=== PATIENT | female | born 1970 | race Hispanic/Latino ===

== ENCOUNTER 2017-09-16 16:35 | Emergency (ER) | payer OTHER ==
[~2017-09-16] VITALS: Ht 167.6 cm; Wt 82.1 kg
[2017-09-16 17:16] VITALS: BP 124/91
== END 2017-09-16 17:15 | disposition home or self-care (01) ==
LOC: FSED 16:35
DX: S90.32XA Contusion of left foot, initial encounter (principal); W20.8XXA Other cause of strike by thrown, projected or falling object, initial encounter; Y92.008 Other place in unspecified non-institutional (private) residence as the place of occurrence of the external cause
CPT/HCPCS: 99283

== ENCOUNTER 2017-10-03 01:07 | Emergency (ER) | payer OTHER ==
[~2017-10-03] VITALS: Ht 170.2 cm; Wt 79.8 kg
[2017-10-03] MEDS ORDERED: ONDANSETRON HCL INJ 2 MG/ML VIAL IV STA (01:33)
[2017-10-03] MEDS ORDERED: SODIUM CHLORIDE 0.9% 1000ML 1,000 ML IV SCH (01:45)
[2017-10-03] MEDS ORDERED: ZOFRAN ODT4 MG PO (02:36)
== END 2017-10-03 02:44 | disposition home or self-care (01) ==
LOC: FSED 01:07
DX: R42 Dizziness and giddiness (principal); R55 Syncope and collapse; K52.9 Noninfective gastroenteritis and colitis, unspecified; E86.1 Hypovolemia; R94.31 Abnormal electrocardiogram [ECG] [EKG]
CPT/HCPCS: 80053; 80307; 81003; 82553; 84484; 85025; 93005; 99283; J2405

== ENCOUNTER 2017-10-22 11:52 | Emergency (ER) | payer OTHER ==
[~2017-10-22] VITALS: Ht 170.2 cm; Wt 79.8 kg
[~2017-10-22 11:52] MED LIST: ZOFRAN ODT4 MG PO
[2017-10-22] MEDS ORDERED: LORAZEPAM 0.5 MG TAB PO ONE (13:30)
== END 2017-10-22 14:20 | disposition home or self-care (01) ==
LOC: FSED 11:52
DX: R00.2 Palpitations (principal); F41.1 Generalized anxiety disorder
CPT/HCPCS: 93005; 99283

== ENCOUNTER 2018-08-04 15:02 | Emergency (ER) | payer BC, OTHER ==
[~2018-08-04] VITALS: Ht 167.6 cm; Wt 84.8 kg
[2018-08-04] MEDS ORDERED: KETOROLAC TROMETHAMINE 60 MG/2 ML VIAL IM ONE (16:00)
[2018-08-04] MEDS ORDERED: PREDNISONE 20 MG TAB PO ONE ×2 (16:00→17:00)
--- NOTE | 2018-08-04 16:32 | Diagnostic Imaging Report ---
Exam: Lumbar spine complete History: Low back pain Comparison: None. Findings: There are 5 nonrib-bearing lumbar-type vertebral bodies. No acute displaced fracture or subluxation. Intervertebral disc spaces are well-maintained. Facet joints are intact. No pars interarticularis defects are identified on the oblique radiographs. Sacroiliac joints are well-maintained. Sacral foramina are intact superiorly. Impression: No acute osseous abnormality. Signed by: Dr. Jared Stephens M.D. on 08/04/2018 4:29 PM
[2018-08-04] MEDS ORDERED: KETOROLAC TROMETHAMINE 60 MG/2 ML VIAL ONE (16:47)
[2018-08-04] MEDS ORDERED: PREDNISONE 20 MG TAB ONE ×2 (16:47→16:49)
[2018-08-04] MEDS ORDERED: PREDNISONE20 MG PO (16:54)
[2018-08-04] MEDS ORDERED: ETODOLAC500 MG PO (16:56)
[2018-08-04] MEDS ORDERED: ULTRAM50 MG PO (17:17)
[2018-08-04 17:18] VITALS: BP 136/93
== END 2018-08-04 17:21 | disposition home or self-care (01) ==
LOC: FSED 15:02
DX: M54.5 Low back pain (principal); M54.16 Radiculopathy, lumbar region; F41.9 Anxiety disorder, unspecified
CPT/HCPCS: 72110; 99283; J1885; J7512

== ENCOUNTER 2019-09-23 14:11 | Emergency (ER) | payer BC ==
[~2019-09-23] VITALS: Ht 167.6 cm; Wt 72.6 kg
[~2019-09-23 14:11] MED LIST changes: +ETODOLAC500 MG PO; +PREDNISONE20 MG PO; +ULTRAM50 MG PO
[2019-09-23] MEDS ORDERED: ASPIRIN 81 MG CHEW TAB PO ONE (14:41)
--- NOTE | 2019-09-23 14:47 | Emergency Department Note ---
History of Present Illnes History of Present Illness Chief Complaint: chest pressure for the last 2 months after being diag with covid 08/25 tested neg appox 10 days later History of Present Illness This is a 49 year old female . Arrival Mode: Car Agile Java Developer Required: No Onset (how long ago): month(s) (1) Radiation: Reports non-radiation Severity: moderate Onset quality: gradual Duration (how long): month(s) (1) Progression: worsening Chronicity: recurrent Context: Reports recent illness (covid ads above) Exacerbating factors: none Treatments prior to arrival: none Past Medical/Family History Physician Review I have reviewed the patient's past medical and family history. Any updates have been documented here. Past Medical History Recent Fever: No Clinical Suspicion of Infectio: No New/Unexplained Change in Ment: No Past Medical History: Migraines, Anxiety Past Surgical History: Hysterectomy, Tubal Ligation Other Surgery: TUBAL REVERSAL FIBROIDS REMOVAL BREAST BIOPSY-BILATERAL Social History Alcohol Use: None TB Exposure/Symptoms: No Physically hurt or threatened: No Other Last Tetanus: UTD Any Pre-Existing Lines (PICC,: No Review of Systems Review of Systems Constitutional: Reports as per HPI EENTM: Reports no symptoms Respiratory: Reports cough (non productive) Gastrointestinal: Reports no symptoms Genitourinary: Reports no symptoms Musculoskeletal: Reports no symptoms Integumentary: Reports no symptoms Neurological: Reports no symptoms (mild frequent as per pt), Reports headache, Reports other (heaviness to left ue and tingling hands) Psychological: Reports anxiety Endocrine: Reports no symptoms Hematological/Lymphatic: Reports no symptoms Review of other systems: All other systems negative Physical Exam Related Data Allergies: Coded Allergies: No Known Allergies (Unverified , 06/12/16) Vital signs reviewed: Yes Physical Exam CONSTITUTIONAL Constitutional: Present well-developed, Present well-nourished HENT HENT: Present normocephalic, Present atraumatic, Present oropharynx clear/moist, Present oropharynx normal, Present nose normal HENT L/R: Present left TM normal, Present right TM normal, Present left canal normal, Present right canal normal, Present left ext ear normal, Present right ext ear normal EYES Eyes: Reports PERRL, Reports conjunctivae normal, Reports EOM normal, Reports lids normal NECK Neck: Present ROM normal, Present supple PULMONARY Pulmonary: Present effort normal, Present breath sounds normal CARDIOVASCULAR Cardiovascular: Present regular rhythm, Present heart sounds normal, Present capillary refill normal, Present normal rate GASTROINTESTINAL Abdominal: Present soft, Present nontender GENITOURINARY Genitourinary: Present exam deferred SKIN Skin: Present warm, Present dry MUSCULOSKELETAL Musculoskeletal: Present ROM normal NEUROLOGICAL Neurological: Present alert, Present oriented x 3, Present DTRs normal, Present no gross motor or sensory deficits (motor 5/5 all 4 extremities no pronator drift no cerebellar signs) PSYCHOLOGICAL Psychological: Present mood/affect normal, Present behavior normal, Present thought content normal Results Laboratory Lab results reviewed: Yes Laboratory comments cbc WNl Chem unremarkable except k 3.4 and ast 46 only mildly abnormal cardiac markers wnl. D-Dimer less than 100 WNL Imaging Imaging results reviewed: Yes Impressions Ct Brain and Chest Xray NAD Diagnostics Tests Diagnostic test(s) reviewed: Yes Diagnostic comments EKG NSR rate 73 axis intervals within normal limits. Poor rwave progression however r waves present in V1 V2. Q wave V3 only Assessment & Plan Medical Decision Making MDM all jackson negative . Post infection cough with chest pain no evidence of cardiac etiology at this point. Constant for 1 month. Told patient that follow up very important and she could return to the ER for any further concerns Assessment & Plan Final Impression: (1) Atypical chest pain (2) Cough, persistent Depart Disposition: HOME, SELF-snf Meds Active Scripts Tramadol Hcl (ULTRAM) 50 Mg Tablet, 50 MG PO Q6H PRN for back pain, #20 TAB 0 Refills Prov:ASHLY HELM MD 08/04/18 Etodolac (ETODOLAC) 500 Mg Tablet, 1 TAB PO BID for pain and inflammation for 10 Days, #20 TAB 0 Refills Prov:ASHLY HELM MD 08/04/18 Prednisone (PREDNISONE) 20 Mg Tab, 50 MG PO DAILY for back pain and inflammation for 7 Days, #7 TAB 0 Refills Prov:ASHLY HELM MD 08/04/18 Ondansetron (ZOFRAN ODT) 4 Mg Tab.rapdis, 4 MG PO Q6H PRN for NAUSEA AND VOMITING, #12 TAB Prov:ASHLY HELM MD 10/03/17 Medications in the ED CLAUDIA Francisco MD Sep 23, 2019 14:47
--- OUTSIDE RECORDS SUMMARY | 2019-09-23 14:54 | XMS REPORT | Summary of Care ---
Author Author CONSTANCE Vgea Organization Unknown Address Unknown Phone Unavailable Care Team Providers Care Service Station Helper Name Role Phone Elham Vega Unavailable Unavailable ARYAN ORE DIGGER, ЕКАТЕРИНА Unavailable Unavailable ANTOINETTE ORE DIGGER, FLOYD Unavailable Unavailable ANTOINETTE GUEST RELATIONS EXECUTIVE, DUSTY L Unavailable Unavailable GERALDINE [place]A [place], MAGGIE MEDEIROS Unavailable Unavailable ARYAN GUEST RELATIONS EXECUTIVE, ЕКАТЕРИНА Unavailable Unavailable Unavailable Unavailable Functional Status Name Dates Details Functional status health issues are not documented Status: Name Dates Details Cognitive status health issues are not d ocumented Status: Problems Name Dates Details Feeling poorly (780.99, R68.89) Status: Active Need for Tdap vaccination (V06.1, Z23) Status: Active Screening for lipid disorders (V77.91, Z 13.220) Status: Active Screening for endocrine, metabolic and i mmunity disorder (V77.99, Z13.29) Status: Active Generalized joint pain (719.40, M25.50) Status: Active Back pain (724.5, M54.9) Status: Active Neck pain (723.1, M54.2) Status: Active Common migraine without aura (346.10, G4 3.009) Status: Active Flu vaccine need (V04.81, Z23) Status: Active BMI 27.0-27.9,adult (V85.23, Z68.27) Status: Active Acute allergic rhinitis due to pollen (4 77.0, J30.1) Status: Active Sore throat (462, J02.9) Status: Active Anxiety (300.00, F41.9) Status: Active Hyperlipidemia (272.4, E78.5) Status: Active Breast cancer screening (V76.10, Z12.39) Status: Active Atypical chest pain (786.59, R07.89) Status: Active COVID-19 virus infection (079.89, U07.1) Status: Active Medications Name Dates Details SUMAtriptan Succinate 100 MG Oral Tablet TAKE 1 TABLET FOR MIGRAINE RELIEF. MAY REPEAT 2 HOURS LATER. MAXIMUM 200MG/DAY. Quantity: 15 ANTOINETTE ORE DIGGER, FLOYD * Start : 30-Aug-2018 Active LORazepam 0.5 MG Oral Tablet Take 1 tab by mouth twice daily as needed for anxiety * Quantity: 20 Refills: 0 ARYAN ORE DIGGER, ЕКАТЕРИНА * Start : 22-Sep-2018 Active Albuterol Sulfate HFA AERS * Refills: 0 Active Allergies and Adverse Reactions Name Dates Details No Known Drug Allergies (Allergy) Status : Active Past Medical History Name Dates Details History of anxiety disorder (V11.8, Z86. 59) Status: Resolved History of Migraine (346.90, G43.909) Status: Resolved Procedures Procedure Dates Details [facility] Digital Mammo Screening Jono G0202 Date: 04-Sep-2019 XRAY Chest 2 views [id number] Date: 20-Sep-2019 History of Hysterectomy Completed History of Tubal Ligation Completed History of Tubal ligation reversal Compl eted Immunization Name Dates Details Tdap (Boostrix) Lot #: [id number] on: 22-Sep-2018 Fluzone Quadrivalent 0.5 ML Intramuscula r Suspension Prefilled Syringe Lot #: [id number] on: 13-Mar-2019 Family History Name Dates Details Family history of malignant neoplasm of cervix (V16.49, Z80.49) Comments: Family History Status: Active Name Dates Details Family history of essential hypertension (V17.49, Z82.49) Status: Active Family history of hyperlipidemia (V18.19 , Z83.438) Status: Active Family history of anxiety disorder (V17. 0, Z81.8) Status: Active Name Dates Details Family history of essential hypertension (V17.49, Z82.49) Status: Active Family history of hyperlipidemia (V18.19 , Z83.438) Status: Active Family history of anxiety disorder (V17. 0, Z81.8) Status: Active Social History Name Dates Details - Status: Name Dates Details Never smoked tobacco (finding) Vital Signs Date Test Result Details 20-Sep-20199:28 Systolic blood pressure 124 mm[Hg] Status: Comments : Location: LUE; Position: Sitting Diastolic blood pressure 82 mm[Hg] Status: Comment s: Location: LUE; Position: Sitting Body height 67 in Status: Weight 164 lb Status: Body mass index (BMI) [Ratio] 25.69 kg/m2 Status: Body surface area Derived from formula 1.86 m2 S tatus: Body temperature 98.4 f Status: Comments: Me thod: Temporal Heart Rate 77 /min Status: Respiratory rate 16 /min Status: Physical Findings 0 Status: Comments: Pa in Scale Physical Findings 0 Status: Comments: Al cohol Screen - How many times in the past yr have you had 5 (for M) or 4 (for F) or 4 (for all > 65yrs) or more drinks in a day? 23-Prq-45878:31 Systolic blood pressure 119 mm[Hg] Status: Comments : Location: LUE; Position: Sitting Diastolic blood pressure 80 mm[Hg] Status: Comment s: Location: LUE; Position: Sitting Body height 67 in Status: Weight 157 lb Status: Body mass index (BMI) [Ratio] 24.59 kg/m2 Status: Body surface area Derived from formula 1.82 m2 S tatus: Heart Rate 74 /min Status: Comments: Lo cation: L Brachial Artery; Physical Findings 0 Status: Comments: Al cohol Screen - How many times in the past yr have you had 5 (for M) or 4 (for F) or 4 (for all > 65yrs) or more drinks in a day? Results Date Description Value Details Results not documented Plan of Care Name Dates Details Planned Observations Planned Goals not documented Planned Encounters Appointment; DIANA MATHUR M.D. On: 06-Nov-2019 15:20 Instructions Name Dates Details Instructions not documented Encounters Appointment; FLOYD CURRY APRN Encounter Diagnosis: Problem not documented On: 30-Aug-2018 14:30 Appointment; ЕКАТЕРИНА BAEZA APRN Encounter Diagnosis: Problem not documented On: 22-Sep-2018 9:00 Appointment; FLOYD CURRY APRN Encounter Diagnosis: Problem not documented On: 31-Oct-2018 11:00 Appointment; ЕКАТЕРИНА BAEZA APRN Encounter Diagnosis: Problem not documented On: 13-Mar-2019 15:30 Appointment; ЕКАТЕРИНА BAEZA APRN Encounter Diagnosis: Problem not documented On: 02-May-2019 16:15 Appointment; ЕКАТЕРИНА BAEZA APRN Encounter Diagnosis: Problem not documented On: 04-Sep-2019 7:30
--- OUTSIDE RECORDS SUMMARY | 2019-09-23 14:54 | XMS REPORT | Summary of Care ---
Author CONSTANCE Marion M.A. Organization Unknown Address Unknown Phone Unavailable Care Team Providers Care Reducing Salon Attendant Name Role Phone ARYAN MEDICAL LABORATORY SCIENTIST, ЕКАТЕРИНА Unavailable Unavailable ANTOINETTE MEDICAL LABORATORY SCIENTIST, FLOYD Unavailable Unavailable ANTOINETTE ENTERPRISE ARCHITECT MANAGER, DUSTY L Unavailable Unavailable GERALDINE CHINCHILLA [place], MAGGIE MEDEIROS Unavailable Unavailable ARYAN ENTERPRISE ARCHITECT MANAGER, ЕКАТЕРИНА Unavailable Unavailable Unavailable Unavailable Functional Status [...] Status: Active Hyperlipidemia (272.4, E78.5) Status: Active COVID-19 virus infection (079.89, U07.1) Status: Active Breast cancer screening (V76.10, Z12.39) Status: Active Medications Name Dates Details SUMAtriptan Succinate 100 MG Oral Tablet TAKE 1 TABLET FOR MIGRAINE RELIEF. MAY REPEAT 2 HOURS LATER. MAXIMUM 200MG/DAY. Quantity: 15 ANTOINETTE MEDICAL LABORATORY SCIENTIST, FLOYD * Start : 30-Aug-2018 Active LORazepam 0.5 MG Oral Tablet Take 1 tab by mouth twice daily as needed for anxiety * Quantity: 20 Refills: 0 ЕКАТЕРИНА BAEZA APRN * Start : 22-Sep-2018 Active Albuterol Sulfate HFA AERS * Refills: 0 Active Benzonatate 100 MG Oral Capsule * Refills: 0 Active Dexamethasone 2 MG Oral Tablet * Refills: 0 Active Allergies and Adverse Reactions Name Dates Details No Known Drug Allergies (Allergy) Status : Active Past Medical History Name Dates Details History of anxiety disorder (V11.8, Z86. 59) Status: Resolved History of Migraine (346.90, G43.909) Status: Resolved Procedures Procedure Dates Details MA Digital Mammo Screening Jono G0202 Date: 04-Sep-2019 History of Hysterectomy Completed History of Tubal Ligation Completed History of Tubal ligation reversal Compl eted Immunization Name Dates Details Tdap (Boostrix) Lot #: [id number] on: 22-Sep-2018 Fluzone Quadrivalent 0.5 ML Intramuscula r Suspension Prefilled Syringe Lot #: [id number] on: 13-Mar-2019 Family History Name Dates Details [...] (finding) Vital Signs Date Test Result Details 40-Rda-38351:31 Systolic blood pressure 119 mm[Hg] Status: Comments : Location: LUE; Position: Sitting Diastolic blood pressure 80 mm[Hg] Status: Comment s: Location: LUE; Position: Sitting Body height 67 in Status: Weight 157 lb Status: Body mass index (BMI) [Ratio] 24.59 kg/m2 Status: Body surface area Derived from formula 1.82 m2 S tatus: Physical Findings 0 Status: Comments: Al cohol Screen - How many times in the past yr have you had 5 (for M) or 4 (for F) or 4 (for all > 65yrs) or more drinks in a day? Heart Rate 74 /min Status: Comments: Lo cation: L Brachial Artery; Results Date Description Value Details Results not documented Plan of Care Name Dates Details Planned Observations Planned Goals not documented Interventions Provided Labs/Procedures/Imaging* MA Digital Mammo Screening Jono G0202; To Be Done: 04 Sep 2019 * Tobacco Use Screening; Done: 04 Sep 2019 Plan* 1.) COVID19 * -Discussed appropriate plan of care and management * -Advised at this stage if she is feeling improved, a CXR will unlikely change her current management but will defer to current managing provider * -Discussed CDC's guidelines re: retesting strategy and advised against retesting if she has completed the minimum 10 day quarantine with 72 hours of no fever/improvement in respiratory symptoms * 2.) Migraine without aura * -Managed by neurology (first visit 08/2018) * -Cont. Sumatriptan 100 mg prn. * 3.) Anxiety * -Increased due to COVID and her sister's cancer dx * -Cont. Lorazepam prn. * 4.) HLD * -LDL 167 (03/2019); ASCVD risk 1.4% * -Keep up excellent work with weight loss * Mammogram ordered for the Marce * F/u 03/2020 for rpt labs or sooner prn Instructions Name Dates Details Instructions not documented [...]
--- OUTSIDE RECORDS SUMMARY | 2019-09-23 14:54 | XMS REPORT | Summary of Care ---
Author Author [facility] Address [address] [place] [address] Phone Unavailable Care Team Providers Care Horticulture Superintendent Name Role Phone ARYAN OYSTER FLOATER, ЕКАТЕРИНА Unavailable Unavailable ANTOINETTE OYSTER FLOATER, FLOYD Unavailable Unavailable ANTOINETTE LOG BRANDER, DUSTY Agus Unavailable Unavailable GERALDINE CHINCHILLA [place], MAGGIE MEDEIROS Unavailable Unavailable ARYAN LOG BRANDER, ЕКАТЕРИНА Unavailable Unavailable Unavailable Unavailable Functional Status Name Dates Details Functional status health issues are not documented Status: Name Dates Details Cognitive status health issues are not d ocumented Status: Problems Name Dates Details Feeling poorly (780.99, R68.89) Status: Active Need for Tdap vaccination (V06.1, Z23) Status: Active Breast cancer screening (V76.10, Z12.39) Status: Active Screening for lipid disorders (V77.91, Z 13.220) Status: Active Screening for endocrine, metabolic and i mmunity disorder (V77.99, Z13.29) Status: Active Generalized joint pain (719.40, M25.50) Status: Active Hyperlipidemia (272.4, E78.5) Status: Active Back pain (724.5, M54.9) Status: Active Neck pain (723.1, M54.2) Status: Active Common migraine without aura (346.10, G4 3.009) Status: Active Anxiety (300.00, F41.9) Status: Active Flu vaccine need (V04.81, Z23) Status: Active BMI 27.0-27.9,adult (V85.23, Z68.27) Status: Active Medications Name Dates Details SUMAtriptan Succinate 100 MG Oral Tablet TAKE 1 TABLET FOR MIGRAINE RELIEF. MAY REPEAT 2 HOURS LATER. MAXIMUM 200MG/DAY. Quantity: 15 ANTOINETTE OYSTER FLOATER, FLOYD * Start : 30-Aug-2018 Active LORazepam 0.5 MG Oral Tablet Take 1 tab by mouth twice daily as needed for anxiety * Quantity: 20 Refills: 0 ARYAN OYSTER FLOATER, ЕКАТЕРИНА * Start : 22-Sep-2018 Active Meloxicam 7.5 MG Oral Tablet TAKE 1 TABLET TWICE DAILY as needed with food * Quantity: 60 Refills: 1 ЕКАТЕРИНА BAEZA APRN * Start : 13-Mar-2019 Active Allergies and Adverse Reactions Name Dates Details No Known Drug Allergies (Allergy) Status : Active Past Medical History Name Dates Details History of anxiety disorder (V11.8, Z86. 59) Status: Resolved History of Migraine (346.90, G43.909) Status: Resolved Procedures Procedure Dates Details History of Hysterectomy Completed History of Tubal Ligation Completed History of Tubal ligation reversal Compl eted Immunization Name Dates Details Tdap (Boostrix) Lot #: [id number] on: 22-Sep-2018 Fluzone Quadrivalent 0.5 ML Intramuscula r Suspension Prefilled Syringe Lot #: [id number] on: 13-Mar-2019 Family History Name Dates Details [...] (finding) Vital Signs Date Test Result Details No Known Vitals to report Results Date Description Value Details Results not documented Plan of Care Name Dates Details Planned Observations Planned Goals not documented Planned Encounters Appointment; ЕКАТЕРИНА BAEZA APRN On: 02-May-2019 16:15 Instructions Name Dates Details Instructions not documented Encounters Appointment; FLOYD CURRY APRN Encounter Diagnosis: Problem not documented On: 30-Aug-2018 14:30 Appointment; ЕКАТЕРИНА BAEZA APRN Encounter Diagnosis: Problem not documented On: 22-Sep-2018 9:00 Appointment; FLOYD CURRY APRN Encounter Diagnosis: Problem not documented On: 31-Oct-2018 11:00 Appointment; ЕКАТЕРИНА BAEZA APRN Encounter Diagnosis: Problem not documented On: 13-Mar-2019 15:30
--- OUTSIDE RECORDS SUMMARY | 2019-09-23 14:54 | XMS REPORT | Summary of Care ---
Author Author CONSTANCE BAEZA APRN Organization Unknown Address Unknown Phone Unavailable Care Team Providers Care Battery Container Tester Aluminum Name Role Phone ARYAN ЕКАТЕРИНА JEONG Unavailable Unavailable ANTOINETTE HAZMAT TRUCK DRIVERFLOYD Unavailable Unavailable ANTOINETTE MOTOR REBUILDER, DUSTY L Unavailable Unavailable GERALDINE CHINCHILLA [place], MAGGIE MEDEIROS Unavailable Unavailable ARYAN MOTOR REBUILDER, ЕКАТЕРИНА Unavailable Unavailable Unavailable Unavailable Functional Status [...] Active Sore throat (462, J02.9) Status: Active Medications Name Dates Details SUMAtriptan Succinate 100 MG Oral Tablet TAKE 1 TABLET FOR MIGRAINE RELIEF. MAY REPEAT 2 HOURS LATER. MAXIMUM 200MG/DAY. Quantity: 15 ANTOINETTE HAZMAT TRUCK DRIVER, FLOYD * Start : 30-Aug-2018 Active LORazepam 0.5 MG Oral Tablet Take 1 tab by mouth twice daily as needed for anxiety * Quantity: 20 Refills: 0 ЕКАТЕРИНА BAEZA APRN * Start : 22-Sep-2018 Active Meloxicam 7.5 [...] Intramuscula r Suspension Prefilled Syringe Lot #: [id number] on: 13-Mar-2019 Family History Name Dates Details [...] (finding) Vital Signs Date Test Result Details [id number] Systolic blood pressure 138 mm[Hg] Status: Comments : Location: LUE; Position: Sitting Diastolic blood pressure 88 mm[Hg] Status: Comment s: Location: LUE; Position: Sitting Body height 67 in Status: Weight 168.5 lb Status: Body mass index (BMI) [Ratio] 26.39 kg/m2 Status: Body surface area Derived from formula 1.88 m2 S tatus: Body temperature 98.3 f Status: Comments: Me thod: Oral Heart Rate 72 /min Status: Comments: Lo cation: L Brachial Artery; O2 SAT 98 % Status: Comments: So urce: RA Results Date Description Value Details [id number] [O] Streptococcus Test Rapid (In Office) Group A Strep Screen Negative (Normal) Plan of Care Name Dates Details Planned Observations Planned Goals not documented Interventions Provided Labs/Procedures/Imaging* [O] Streptococcus Test Rapid (In Office); Done: 02 May 2019 * Tobacco Use Screening; Done: 02 May 2019 Instructions Name Dates Details Instructions not documented [...]
--- OUTSIDE RECORDS SUMMARY | 2019-09-23 14:54 | XMS REPORT | Summary of Care ---
Author Author CONSTANCE BAEZA APRN Organization Unknown Address Unknown Phone Unavailable Care Team Providers Care Watch Repair Person Name Role Phone ARYAN ЕКАТЕРИНА JEONG Unavailable Unavailable ANTOINETTE SURGICAL SERVICES COORDINATORFLOYD Unavailable Unavailable ANTOINETTE BROWNING PROCESSOR, DUSTY L Unavailable Unavailable GERALDINE CHINCHILLA [place], MAGGIE MEDEIROS Unavailable Unavailable ARYAN BROWNING PROCESSOR, ЕКАТЕРИНА Unavailable Unavailable Unavailable Unavailable Functional Status [...] Active Sore throat (462, J02.9) Status: Active Hyperlipidemia (272.4, E78.5) Status: Active Medications Name Dates Details SUMAtriptan Succinate 100 MG Oral Tablet TAKE 1 TABLET FOR MIGRAINE RELIEF. MAY REPEAT 2 HOURS LATER. MAXIMUM 200MG/DAY. Quantity: 15 ANTOINETTE SURGICAL SERVICES COORDINATOR, FLOYD * Start : 30-Aug-2018 Active LORazepam [...] Intramuscula r Suspension Prefilled Syringe Lot #: [id number] on: 13-Mar-2019 Family History Name Dates Details [...] (finding) Vital Signs Date Test Result Details [id number] Systolic blood pressure 138 mm[Hg] Status: Comments [...] urce: RA Results Date Description Value Details [id number] [O] Streptococcus Test Rapid (In Office) Group A Strep Screen Negative (Normal) Plan of Care Name Dates Details Planned Observations Planned Goals not documented Interventions Provided Labs/Procedures/Imaging* [O] Streptococcus Test Rapid (In Office); Done: 02 May 2019 * Tobacco Use Screening; Done: 02 May 2019 * Tobacco Use Screening; Done: 03 May 2019 Plan* Strep negative * Likely allergic rhinitis * Start OTC antihistamine, nasal spray, warm tea with lemon/honey * Cont. excellent dietary/lifestyle changes * Recheck labs in 6 months * F/u as needed Instructions Name Dates Details Instructions not documented [...]
--- OUTSIDE RECORDS SUMMARY | 2019-09-23 14:54 | XMS REPORT | Summary of Care ---
Author Author CONSTANCE Renee LVN Organization Unknown Address [facility] Phone Unavailable Care Team Providers Care Construction Secretary Name Role Phone Thelma ALLISONMari Unavailable Unavailable ARYAN N.P., ЕКАТЕРИНА Unavailable Unavailable ANTOINETTE N.P., FLOYD Unavailable Unavailable ANTOINETTE GLOBAL ENGINEERING MANAGER, DUSTY L Unavailable Unavailable GERALDINE CHINCHILLA [place], MAGGIE MEDEIROS Unavailable Unavailable ARYAN GLOBAL ENGINEERING MANAGER, ЕКАТЕРИНА Unavailable Unavailable Unavailable Unavailable Functional [...] HOURS LATER. MAXIMUM 200MG/DAY. Quantity: 15 ANTOINETTE N.P., FLOYD * Start : 30-Aug-2018 Active LORazepam 0.5 MG Oral Tablet Take 1 tab by mouth twice daily as needed for anxiety * Quantity: 20 Refills: 0 ARYAN N.P., ЕКАТЕРИНА * Start : 22-Sep-2018 Active Meloxicam 7.5 MG Oral Tablet TAKE 1 TABLET TWICE DAILY as needed with food * Quantity: 60 Refills: 1 ARYAN N.P., ЕКАТЕРИНА * Start : 13-Mar-2019 Active Allergies and [...] Intramuscula r Suspension Prefilled Syringe Lot #: [id number] on: 13-Mar-2019 Family History Name Dates Details [...] Details - Status: Name Dates Details Never smoker Vital Signs Date Test Result Details 19-Jsf-[id number]:10 BP Systolic 121 mm[Hg] Status: Comments: Lo cation: LUE; Position: Sitting BP Diastolic 80 mm[Hg] Status: Comments: Lo cation: LUE; Position: Sitting Physical Findings 5 Status: Comments: PH Q-9 Adult Depression Screening Height 67 in Status: Weight 174 lb Status: Body Mass Index Calculated 27.25 kg/m2 Status: Body Surface Area Calculated 1.91 m2 Status: Temperature 98.2 f Status: Comments: Me thod: Temporal Heart Rate 76 /min Status: Comments: Qu ality: Normal Results Date Description Value Details 22-Mar-20198:24 [QH] LIPID PANEL WITH REFLEX TO DIRECT L DL CHOLESTEROL, TOTAL 239 mg/dl (Above high thresh old) Range: <200 HDL CHOLESTEROL 49 mg/dl (Below low threshold) Range: > OR = 50 TRIGLYCERIDES 104 mg/dl (Normal) Range: <150 LDL-CHOLESTEROL 167 {MG/DL__CAL} (Above high th reshold) Comments: Reference range: <100 Desirable range <100 mg/dL for primary prevention; <70 mg/dL for patients with CHD or diabetic patients with > or = 2 CHD risk factors. LDL-C is now calculated using the Dmitriy-Camilo calculation, which is a validated novel method providing better accuracy than the Friedewald equation in the estimation of LDL-C. Dmitriy SS et al. ANAYELI. 2013;310(19): 3536-3497 (http ://education.MedyMatch/faq/VSL646) CHOL/HDLC RATIO 4.9 {CALC} (Normal) Range: <5.0 NON HDL CHOLESTEROL 190 {MG/DL__CAL} (Above hig h threshold) Range: <130 Comments: For patients with diabetes plus 1 major ASCVD risk factor, treating to a non-HDL-C goal of <100 mg/dL (LDL-C of <70 mg/dL) is considered a therapeutic option. :24 [Q] DANAE SCREEN, IFA, W/REFLEX TO TITER A ND PATTERN/RHEUM DANAE SCREEN, IFA NEGATIVE Range: NEGATIVE Comments: DANAE IFA is a first line screen for detecting the presence ofup to approximately 150 autoantibodies in various autoimmunediseases. A negative DANAE IFA result suggests anANA-associated autoimmune disease is not present at thistime, but is not definitive. If there is high clinicalsuspicion for Sjogren's syndrome, testing for anti-SS-A/Roantibody should be considered. Anti-Nica-1 antibody should beconsidered for clinically suspected inflammatory myopathies. AC-0: NegativeInternational Consensus on DANAE Patternshttps://doi.org/10.1515/[email or web address] For additional information, please refer tohttp://education.MedyMatch/faq/GMC190(This link is being provided for information/educationalpurposes only.) RHEUMATOID FACTOR <14 {IU/ml} Range: <14 CYCLIC CITRULLINATED PEPTIDE (CCP) AB (IGG) <16 {Units} Comments: Reference Range: NEGATIVE: <20 WEAK POSITIVE: 20-39 MODERATE POSITIVE: 40-59 STRONG POSITIVE >59 INTERPRETATION SEE NOTE Comments: There is no serologic evidence for rheumatoid arthritis. TheRF and CCP tests each have a sensitivity for establishedrheumatoid arthritis of approximately 65-70%. Jxwbmkkb00-8-4m, a serum marker that is positive in 21% of RFnegative/CCP negative early rheumatoid arthritis and in 67%of RF negative/CCP negative established rheumatoidarthritis, if clinically indicated. 14.3.3 ETA PROTEIN <0.2 ng/ml Range: <0.2 Comments: The 14-3-3eta protein is a marker of synovial inflammationthat is released into synovial fluid and peripheral blood inrheumatoid arthritis (RA) and erosive psoriatic arthritis.One in five RF and CCP seronegative early stage RA patientsis found to be positive for 14-3-3eta protein. Patients withactive joint RA disease have higher values of 92-0-1bwmklxuhod than those with inactive RA or psoriasis withoutarthritis. 14-3-3eta protein has a 93% specificity inpatients with RA. Values > or = 0.2 ng/mL are elevated andindicative of RA disease or erosive psoriatic arthritis.Values >0.50 ng/mL are associated with more aggressive RAdisease and poorer outcomes. Unlike RF and CCP, 77-8-3spkshzhypf is a therapeutically modifiable marker to monitorresponse to therapy. A decrease in 14-3-3eta protein inresponse to DMARDs (disease-modifying antirheumatic drugs)and anti-TNF (tumor necrosis factor) drugs indicates betterclinical outcomes; an increase is associated with worseoutcomes despite apparent clinical remission. For further information please visit:[email or web address]?[email or web address]- RmArthPnl This test was developed and its analytical performancecharacteristics have been determined by [facility]. It has not beencleared or approved by FDA. This assay has been validatedpursuant to the CLIA regulations and is used for clinicalpurposes. 22-Mar-20198:24 [[facility]] CMP W/EGFR Comments: REPORT COM MENT:FASTING:YES GLUCOSE 85 mg/dl (Normal) Range: 65-99 Comments: Fasting reference interval UREA NITROGEN (BUN) 12 mg/dl (Normal) Range: 7- 25 CREATININE 0.67 mg/dl (Normal) Range: 0.50 -1.10 eGFR NON- 104 {ML/MIN/1.7} (Nor mal) Range: > OR = 60 eGFR 120 {ML/MIN/1.7} (Normal) Range: > OR = 60 BUN/CREATININE RATIO NOT APPLICABLE {CALC} Rang e: 6-22 SODIUM 141 mmol/L (Normal) Range: 135- 146 POTASSIUM 4.0 mmol/L (Normal) Range: 3.5- 5.3 CHLORIDE 107 mmol/L (Normal) Range: 98-1 10 CARBON DIOXIDE 26 mmol/L (Normal) Range: 20-32 CALCIUM 9.0 mg/dl (Normal) Range: 8.6-1 0.2 PROTEIN, TOTAL 6.4 g/dl (Normal) Range: 6.1-8. 1 ALBUMIN 4.0 g/dl (Normal) Range: 3.6-5. 1 GLOBULIN 2.4 {G/DL__CALC} (Normal) Range : 1.9-3.7 ALBUMIN/GLOBULIN RATIO 1.7 {CALC} (Normal) Rang e: 1.0-2.5 BILIRUBIN, TOTAL 0.8 mg/dl (Normal) Range: 0.2- 1.2 ALKALINE PHSPHATASE 57 u/l (Normal) Range: 31-1 25 AST 14 u/l (Normal) Range: 10-35 ALT 11 u/l (Normal) Range: 6-29 Plan of Care Name Dates Details Planned Observations Planned Goals not documented Instructions Name Dates Details Instructions not documented Encounters Appointment; FLOYD CURRY NP Encounter Diagnosis: Problem not documented On: 30-Aug-2018 14:30 Appointment; ЕКАТЕРИНА BAEZA NP Encounter Diagnosis: Problem not documented On: 22-Sep-2018 9:00 Appointment; FLOYD CURRY NP Encounter Diagnosis: Problem not documented On: 31-Oct-2018 11:00 Appointment; ЕКАТЕРИНА BAEZA NP Encounter Diagnosis: Problem not documented On: 13-Mar-2019 15:30
--- OUTSIDE RECORDS SUMMARY | 2019-09-23 14:54 | XMS REPORT | Summary of Care ---
Author Author CONSTANCE BAEZA APRN Organization Unknown Address Unknown Phone Unavailable Care Team Providers Care Vfx Artist Name Role Phone ARYAN ЕКАТЕРИНА JEONG Unavailable Unavailable ANTOINETTE AUTOMATIC BUFFING WHEEL FORMERFLOYD Unavailable Unavailable ANTOINETTE LOZENGE MAKER HELPER, DUSTY L Unavailable Unavailable GERALDINE CHINCHILLA [place], MAGGIE MEDEIROS Unavailable Unavailable ARYAN LOZENGE MAKER HELPER, ЕКАТЕРИНА Unavailable Unavailable Unavailable Unavailable Functional Status [...] HOURS LATER. MAXIMUM 200MG/DAY. Quantity: 15 ANTOINETTE AUTOMATIC BUFFING WHEEL FORMER, FLOYD * Start : 30-Aug-2018 Active LORazepam [...] Intramuscula r Suspension Prefilled Syringe Lot #: [id number] on: 13-Mar-2019 Family History Name Dates Details [...] (finding) Vital Signs Date Test Result Details 21-Awy-308727:10 Systolic blood pressure 138 mm[Hg] Status: Comments [...] urce: RA Results Date Description Value Details 23-Aun-366343:16 [O] Streptococcus Test Rapid (In Office) Group A Strep Screen Negative (Normal) Plan of Care Name Dates Details Planned Observations Planned Goals not documented Interventions Provided Medication Changes* LORazepam 0.5 MG Oral Tablet - Renew Instructions Name Dates Details Instructions not documented [...]
--- OUTSIDE RECORDS SUMMARY | 2019-09-23 14:54 | XMS REPORT | Summary of Care ---
Author Author CONSTANCE BAEZA APRN Organization Unknown Address Unknown Phone Unavailable Care Team Providers Care Demonstrator Sewing Techniques Name Role Phone ARYAN MACKN ЕКАТЕРИНА Unavailable Unavailable ANTOINETTE CRIMINAL JUSTICE PROGRAM DIRECTOR FLOYD Unavailable Unavailable ANTOINETTE MANAGER LAN, DUSTY L Unavailable Unavailable GERALDINE CHINCHILLA [place], MAGGIE MEDEIROS Unavailable Unavailable ARYAN MANAGER LAN, ЕКАТЕРИНА Unavailable Unavailable Unavailable Unavailable Functional Status [...] HOURS LATER. MAXIMUM 200MG/DAY. Quantity: 15 ANTOINETTE CRIMINAL JUSTICE PROGRAM DIRECTOR, FLOYD * Start : 30-Aug-2018 Active LORazepam 0.5 MG Oral Tablet Take 1 tab by mouth twice daily as needed for anxiety * Quantity: 20 Refills: 0 ARYAN ЕКАТЕРИНА JEONG * Start : 22-Sep-2018 Active Albuterol Sulfate [...] G0202 Date: 04-Sep-2019 XRAY Chest 2 views [id number] Date: 20-Sep-2019 History of Hysterectomy Completed History of Tubal Ligation Completed History of Tubal ligation reversal Compl eted Immunization Name Dates Details Tdap (Boostrix) Lot #: [id number] on: 22-Sep-2018 Fluzone Quadrivalent 0.5 ML Intramuscula r Suspension Prefilled Syringe Lot #: [id number] on: 13-Mar-2019 Family History Name Dates Details [...] 65yrs) or more drinks in a day? :31 Systolic blood pressure 119 mm[Hg] Status: Comments [...] Observations Planned Goals not documented Planned Encounters Cardiology Referral Interventions Provided Labs/Procedures/Imaging* XRAY Chest 2 views [id number]; To Be Done: 20 Sep 2019 * EKG (In Office); Done: 20 Sep 2019 * Tobacco Use Screening; Done: 20 Sep 2019 * Tobacco Use Screening; Done: 20 Sep 2019 Plan* Recovered from COVID, dx 4 weeks ago * EKG abnormal - reviewed with Dr. Gonzalez who advised was not acute but recommended cardiac follow up for eval. * Obtain CXR * ER precautions reviewed. Pt verbalized understanding. * Start trial PPI to also see if symptoms are improved - may also be GERD * F/u prn Instructions Name Dates Details Instructions not [...] Diagnosis: Problem not documented On: 04-Sep-2019 7:30 Appointment; ЕКАТЕРИНА BAEZA APRN Encounter Diagnosis: Problem not documented On: 20-Sep-2019 9:00
--- OUTSIDE RECORDS SUMMARY | 2019-09-23 14:54 | XMS REPORT | Summary of Care ---
Author Author CONSTANCE BAEZA N.P. Organization Unknown Address Unknown Phone Unavailable Care Team Providers Care Tripe Finisher Name Role Phone ARYAN N.P., ЕКАТЕРИНА Unavailable Unavailable ANTOINETTE N.P., FLOYD Unavailable Unavailable ANTOINETTE COLD PRESS LOADER, DUSTY L Unavailable Unavailable GERALDINE CHINCHILLA [place], MAGGIE MEDEIROS Unavailable Unavailable ARYAN COLD PRESS LOADER, ЕКАТЕРИНА Unavailable Unavailable Unavailable Unavailable Functional Status [...] G43.909) Status: Resolved Procedures Procedure Dates Details [Q] DANAE SCREEN, IFA, W/REFLEX TO TITER AND PATTERN/RHEUM Theo e: 13-Mar-2019 [QL] CMP W/EGFR Date: 13-Mar-2019 [Q] LIPID PANEL WITH REFLEX TO DIRECT LDL Date: 13-Mar-2019 History of Hysterectomy Completed History of Tubal Ligation Completed History of Tubal ligation reversal Compl eted Immunization Name Dates Details Tdap (Boostrix) Lot #: [id number] on: 22-Sep-2018 Fluzone Quadrivalent 0.5 ML Intramuscula r Suspension Prefilled Syringe Lot #: [id number] on: 13-Mar-2019 Family History Name Dates Details [...] smoker Vital Signs Date Test Result Details 05-Cav-948385:10 BP Systolic 121 mm[Hg] Status: Comments: Lo [...] ality: Normal Results Date Description Value Details Results not documented Plan of Care Name Dates Details Planned Observations Planned Goals not documented Interventions Provided Medication Changes* Meloxicam 7.5 MG Oral Tablet - Start Labs/Procedures/Imaging* [Q] DANAE SCREEN, IFA, W/REFLEX TO TITER AND PATTERN/RHEUM; To Be Done: 13 Mar 2019 * [QH] LIPID PANEL WITH REFLEX TO DIRECT LDL; To Be Done: 13 Mar 2019 * [QLH] CMP W/EGFR; To Be Done: 13 Mar 2019 * Tobacco Use Screening; Done: 13 Mar 2019 Medications/Immunizations Administered* Fluzone Quadrivalent 0.5 ML Intramuscular Suspension Prefilled Syringe; Done: 13 Mar 2019 Plan* 1.) Migraine without aura * -Cont. Sumatriptan 100 mg prn. F/u with neurology prn * 2.) Anxiety * -Cont. Lorazepam 0.5 mg prn * -Refills not required today * -Stress reduction, exercises * 3.) Back/neck/polyjoint pain * -Check DANAE * -Trial Meloxicam 7.5 mg BID with meals prn * -Recommended PT eval - declines for now * -Defer imaging for now * -Heating pad, stretching, limit time sitting * 4.) HLD * -Recheck lipids and CMP * -Congratulated on weight loss. * Symptom diary for transient sxs involving hot flash at base of neck. Instructions Name Dates Details Instructions not documented Encounters Appointment; FLOYD CURRY NP Encounter Diagnosis: Problem not documented On: 30-Aug-2018 14:30 Appointment; ЕКАТЕРИНА BAEZA NP Encounter Diagnosis: Problem not documented On: 22-Sep-2018 9:00 Appointment; FLOYD CURRY NP Encounter Diagnosis: Problem not documented On: 31-Oct-2018 11:00 Appointment; ЕКАТЕРИНА BAEZA NP Encounter Diagnosis: Problem not documented On: 13-Mar-2019 15:30
--- OUTSIDE RECORDS SUMMARY | 2019-09-23 14:54 | XMS REPORT | Summary of Care ---
Author Author CONSTANCE BAEZA N.P. Organization Unknown Address Unknown Phone Unavailable Care Team Providers Care Hydroelectric Component Machinist Name Role Phone ARYAN N.P., ЕКАТЕРИНА Unavailable Unavailable ANTOINETTE N.P., FLOYD Unavailable Unavailable ANTOINETTE INSPECTOR PURCHASED PARTS, DUSTY L Unavailable Unavailable GERALDINE CHINCHILLA [place], MAGGIE MEDEIROS Unavailable Unavailable ARYAN INSPECTOR PURCHASED PARTS, ЕКАТЕРИНА Unavailable Unavailable Unavailable Unavailable Functional Status [...] Intramuscula r Suspension Prefilled Syringe Lot #: [id number] on: 13-Mar-2019 Family History Name Dates Details [...] smoker Vital Signs Date Test Result Details 74-Afq-867147:10 BP Systolic 121 mm[Hg] Status: Comments: Lo [...] equation in the estimation of LDL-C. Dmitriy BEVERLY et al. ANAYELI. 2013;310(19): 5913-0588 (http ://education.[employer]/faq/OTE211) CHOL/HDLC RATIO 4.9 {CALC} (Normal) Range: <5.0 [...] inflammatory myopathies. AC-0: NegativeInternational Consensus on DANAE Patternshttps://doi.org/10.1515/uhrh-2595-6907 For additional information, please refer tohttp://education.U-NOTE/faq/PWC463(This link is being provided for information/educationalpurposes only.) RHEUMATOID FACTOR <14 {IU/ml} Range: <14 CYCLIC CITRULLINATED PEPTIDE (CCP) AB (IGG) <16 {Units} Comments: Reference Range: NEGATIVE: <20 WEAK POSITIVE: 20-39 MODERATE POSITIVE: 40-59 STRONG POSITIVE >59 INTERPRETATION SEE NOTE Comments: There is no serologic evidence for rheumatoid arthritis. TheRF and CCP tests each have a sensitivity for establishedrheumatoid arthritis of approximately 65-70%. Carfmuyy72-7-9t, a serum marker that is positive in [...] joint RA disease have higher values of 47-5-7bclekbmwgw than those with inactive RA or psoriasis withoutarthritis. 14-3-3eta protein has a 93% specificity inpatients with RA. Values > or = 0.2 ng/mL are elevated andindicative of RA disease or erosive psoriatic arthritis.Values >0.50 ng/mL are associated with more aggressive RAdisease and poorer outcomes. Unlike RF and CCP, 20-2-4yrfowygivc is a therapeutically modifiable marker to monitorresponse to therapy. A decrease in 14-3-3eta protein inresponse to DMARDs (disease-modifying antirheumatic drugs)and anti-TNF (tumor necrosis factor) drugs indicates betterclinical outcomes; an increase is associated with worseoutcomes despite apparent clinical remission. For further information please visit:[email or web address]?dc=TS- RmArthPnl This test was developed and its analytical performancecharacteristics have been determined by [facility]. It has not beencleared or approved by FDA. This assay has been validatedpursuant to the CLIA regulations and is used for clinicalpurposes. :24 [QL] CMP W/EGFR Comments: REPORT COM MENT:FASTING:YES GLUCOSE [...]
--- OUTSIDE RECORDS SUMMARY | 2019-09-23 14:54 | XMS REPORT | Summary of Care ---
Author Author CONSTANCE BAEZA APRN Organization Unknown Address Unknown Phone Unavailable Care Team Providers Care Assistant Pastry Chef Name Role Phone ARYAN ЕКАТЕРИНА JEONG Unavailable Unavailable ANTOINETTE APPLICATION DEVELOPERFLOYD Unavailable Unavailable ANTOINETTE GRAIN HANDLER, DUSTY L Unavailable Unavailable GERALDINE CHINCHILLA [place], MAGGIE MEDEIROS Unavailable Unavailable ARYAN GRAIN HANDLER, ЕКАТЕРИНА Unavailable Unavailable Unavailable Unavailable Functional Status [...] HOURS LATER. MAXIMUM 200MG/DAY. Quantity: 15 ANTOINETTE APPLICATION DEVELOPER, FLOYD * Start : 30-Aug-2018 Active LORazepam [...] Intramuscula r Suspension Prefilled Syringe Lot #: [id number] on: 13-Mar-2019 Family History Name Dates Details [...] (finding) Vital Signs Date Test Result Details 41-Yft-216821:10 Systolic blood pressure 138 mm[Hg] Status: Comments [...] urce: RA Results Date Description Value Details 77-Jvp-595115:16 [O] Streptococcus Test Rapid (In Office) Group [...]
--- OUTSIDE RECORDS SUMMARY | 2019-09-23 14:54 | XMS REPORT | Summary of Care ---
Author Author CONSTANCE Monroy Organization Unknown Address Unknown Phone Unavailable Care Team Providers Care Farm Machinery Set Up Mechanic Name Role Phone NewaygoMarko stiles Unavailable Unavailable ARYAN COMMERCIAL SALES DIRECTOR, ЕКАТЕРИНА Unavailable Unavailable ANTOINETTE COMMERCIAL SALES DIRECTOR, FLOYD Unavailable Unavailable ANTOINETTE PLASTICS FABRICATOR AND ASSEMBLER, DUSTY L Unavailable Unavailable GERALDINE CHINCHILLA [place], MAGGIE MEDEIROS Unavailable Unavailable ARYAN PLASTICS FABRICATOR AND ASSEMBLER, ЕКАТЕРИНА Unavailable Unavailable Unavailable Unavailable Functional Status [...] HOURS LATER. MAXIMUM 200MG/DAY. Quantity: 15 ANTOINETTE COMMERCIAL SALES DIRECTOR, FLOYD * Start : 30-Aug-2018 Active LORazepam 0.5 MG Oral Tablet Take 1 tab by mouth twice daily as needed for anxiety * Quantity: 20 Refills: 0 ARYAN COMMERCIAL SALES DIRECTOR, ЕКАТЕРИНА * Start : 22-Sep-2018 Active Albuterol [...] G0202 Date: 04-Sep-2019 XRAY Chest 2 views [id number] Date: 20-Sep-2019 History of Hysterectomy Completed History of Tubal Ligation Completed History of Tubal ligation reversal Compl eted Immunization Name Dates Details Tdap (Boostrix) Lot #: [id number] on: 22-Sep-2018 Fluzone Quadrivalent 0.5 ML Intramuscula r Suspension Prefilled Syringe Lot #: [id number] on: 13-Mar-2019 Family History Name Dates Details [...] 65yrs) or more drinks in a day? 79-Cyf-49198:31 Systolic blood pressure 119 mm[Hg] Status: Comments [...]
--- OUTSIDE RECORDS SUMMARY | 2019-09-23 14:54 | XMS REPORT | Summary of Care ---
Author Author CONSTANCE BAEZA APRN Organization Unknown Address Unknown Phone Unavailable Care Team Providers Care Waste Machine Operator Name Role Phone ARYAN ЕКАТЕРИНА JEONG Unavailable Unavailable ANTOINETTE POT LINING SUPERVISORFLOYD Unavailable Unavailable ANTOINETTE JIG BORE TOOL MAKER, DUSTY L Unavailable Unavailable GERALDINE CHINCHILLA [place], MAGGIE MEDEIROS Unavailable Unavailable ARYAN JIG BORE TOOL MAKER, ЕКАТЕРИНА Unavailable Unavailable Unavailable Unavailable Functional Status Name Dates Details Functional status health issues are not documented Status: Name Dates Details Cognitive status health issues are not d ocumented Status: Problems Name Dates Details Feeling poorly (780.99, R68.89) Status: Active Anxiety (300.00, F41.9) Status: Active Back pain (724.5, M54.9) Status: Active Hyperlipidemia (272.4, E78.5) Status: Active BMI 27.0-27.9,adult (V85.23, Z68.27) Status: Active Need for Tdap vaccination (V06.1, Z23) Status: Active Neck pain (723.1, M54.2) Status: Active Sore throat (462, J02.9) Status: Active Screening for endocrine, metabolic and i mmunity disorder (V77.99, Z13.29) Status: Active Screening for lipid disorders (V77.91, Z 13.220) Status: Active Breast cancer screening (V76.10, Z12.39) Status: Active Acute allergic rhinitis due to pollen (4 77.0, J30.1) Status: Active Generalized joint pain (719.40, M25.50) Status: Active Common migraine without aura (346.10, G4 3.009) Status: Active Flu vaccine need (V04.81, Z23) Status: Active Medications Name Dates Details SUMAtriptan Succinate 100 MG Oral Tablet TAKE 1 TABLET FOR MIGRAINE RELIEF. MAY REPEAT 2 HOURS LATER. MAXIMUM 200MG/DAY. Quantity: 15 ANTOINETTE POT LINING SUPERVISOR, FLOYD * Start : 30-Aug-2018 Active LORazepam [...] Resolved Procedures Procedure Dates Details History of Tubal Ligation Completed History of Tubal ligation reversal Compl eted History of Hysterectomy Completed Immunization Name Dates Details Tdap (Boostrix) Lot #: [id number] on: 22-Sep-2018 Fluzone Quadrivalent 0.5 ML Intramuscula r Suspension Prefilled Syringe Lot #: [id number] on: 13-Mar-2019 Family History Name Dates Details Family history of malignant neoplasm of cervix (V16.49, Z80.49) Comments: Family History Status: Active Name Dates Details Family history of anxiety disorder (V17. 0, Z81.8) Status: Active Family history of essential hypertension (V17.49, Z82.49) Status: Active Family history of hyperlipidemia (V18.19 , Z83.438) Status: Active Name Dates Details Family history of anxiety disorder (V17. 0, Z81.8) Status: Active Family history of essential hypertension (V17.49, Z82.49) Status: Active Family history of hyperlipidemia (V18.19 , Z83.438) Status: Active Social History Name Dates Details - Status: Name Dates Details Never smoked tobacco (finding) Vital Signs Date Test Result Details No Known Vitals to report Results Date Description Value Details Results not documented Plan of Care Name Dates Details Planned Observations Planned Goals not documented Planned Encounters Appointment; ЕКАТЕРИНА BAEZA APRN On: 04-Sep-2019 7:30 Interventions Provided Medication Changes* LORazepam 0.5 MG [...]
--- OUTSIDE RECORDS SUMMARY | 2019-09-23 14:54 | XMS REPORT | Summary of Care ---
Author Author CONSTANCE Lucas R.N. Organization Unknown Address [facility] Phone Unavailable Care Team Providers Care Riding Teacher Name Role Phone ARYAN SORTING SUPERVISOR, ЕКАТЕРИНА Unavailable Unavailable ANTOINETTE SORTING SUPERVISOR, FLOYD Unavailable Unavailable ANTOINETTE ELEVATOR SUPERVISOR, DUSTY L Unavailable Unavailable GERALDINE [place]IN[place], MAGGIE MEDEIROS Unavailable Unavailable ARYAN ELEVATOR SUPERVISOR, ЕКАТЕРИНА Unavailable Unavailable Unavailable Unavailable Functional Status [...] Active BMI 27.0-27.9,adult (V85.23, Z68.27) Status: Active Sore throat (462, J02.9) Status: Active Medications Name Dates Details SUMAtriptan Succinate 100 MG Oral Tablet TAKE 1 TABLET FOR MIGRAINE RELIEF. MAY REPEAT 2 HOURS LATER. MAXIMUM 200MG/DAY. Quantity: 15 ANTOINETTE SORTING SUPERVISOR, FLOYD * Start : 30-Aug-2018 Active LORazepam 0.5 MG Oral Tablet Take 1 tab by mouth twice daily as needed for anxiety * Quantity: 20 Refills: 0 ARYAN SORTING SUPERVISOR, ЕКАТЕРИНА * Start : 22-Sep-2018 Active Meloxicam [...] Intramuscula r Suspension Prefilled Syringe Lot #: [id number] on: 13-Mar-2019 Family History Name Dates Details [...] (finding) Vital Signs Date Test Result Details :10 Systolic blood pressure 138 mm[Hg] Status: Comments [...] urce: RA Results Date Description Value Details [id number] [O] Streptococcus Test Rapid (In Office) Group A Strep Screen Negative (Normal) Plan of Care Name Dates Details Planned Observations Planned Goals not documented Interventions Provided Labs/Procedures/Imaging* [O] Streptococcus Test Rapid (In Office); Done: 02 May 2019 Instructions Name Dates [...]
--- OUTSIDE RECORDS SUMMARY | 2019-09-23 14:54 | XMS REPORT | Summary of Care ---
Author Author [facility] Address [address] [place] [address] Phone Unavailable Care Team Providers Care Veneer Joiner Name Role Phone ARYAN N.P., ЕКАТЕРИНА Unavailable Unavailable ANTOINETTE N.P., FLOYD Unavailable Unavailable ANTOINETTE GIFT OFFICER, DUSTY L Unavailable Unavailable GERALDINE CHIN[place]ILLA [place], MAGGIE MEDEIROS Unavailable Unavailable ARYAN GIFT OFFICER, ЕКАТЕРИНА Unavailable Unavailable Unavailable Unavailable Functional Status Name Dates Details Functional status health issues are not documented Status: Name Dates Details Cognitive status health issues are not d ocumented Status: Problems Name Dates Details Common migraine without aura (346.10, G4 3.009) Status: Active Neck pain (723.1, M54.2) Status: Active Back pain (724.5, M54.9) Status: Active Feeling poorly (780.99, R68.89) Status: Active Anxiety (300.00, F41.9) Status: Active Need for Tdap vaccination (V06.1, Z23) Status: Active Breast cancer screening (V76.10, Z12.39) Status: Active Screening for lipid disorders (V77.91, Z 13.220) Status: Active Screening for endocrine, metabolic and i mmunity disorder (V77.99, Z13.29) Status: Active Medications Name Dates Details hydrOXYzine HCl - 50 MG Oral Tablet TAKE 1 TABLET 3-4 TIMES DAILY. ANTOINETTE N.P., FLOYD * Start : 30-Aug-2018 Active Ondansetron HCl - 4 MG Oral Tablet TAKE 1 TABLET Daily take one tablet as needed when headache starts * Quantity: 8 Refills: 1 ANTOINETTE N.P., FLOYD * Start : 30-Aug-2018 Active SUMAtriptan Succinate 100 MG Oral Tablet TAKE 1 TABLET FOR MIGRAINE RELIEF. MAY REPEAT 2 HOURS LATER. MAXIMUM 200MG/DAY. * Quantity: 15 Refills: 1 ANTOINETTE N.P., FLOYD * Start : 30-Aug-2018 Active LORazepam 0.5 MG Oral Tablet Take 1 tab by mouth twice daily as needed for anxiety * Quantity: 20 Refills: 0 ARYAN N.P., ЕКАТЕРИНА * Start : 22-Sep-2018 Active Allergies and Adverse Reactions Name Dates [...] Tdap (Boostrix) Lot #: [id number] on: 22-Sep-2018 Family History Name Dates Details Family history [...] smoker Vital Signs Date Test Result Details No Known Vitals to report Results Date Description Value Details Results not documented Plan of Care Name Dates Details Planned Observations Planned Goals not documented Planned Encounters Appointment; ЕКАТЕРИНА BAEZA NP On: 13-Mar-2019 15:30 Instructions Name Dates Details Instructions not documented Encounters Appointment; FLOYD CURRY NP Encounter Diagnosis: Problem not documented On: 30-Aug-2018 14:30 Appointment; ЕКАТЕРИНА BAEZA NP Encounter Diagnosis: Problem not documented On: 22-Sep-2018 9:00 Appointment; FLOYD CURRY NP Encounter Diagnosis: Problem not documented On: 31-Oct-2018 11:00
--- OUTSIDE RECORDS SUMMARY | 2019-09-23 14:54 | XMS REPORT | Continuity of Care Document ---
Author Author [facility] t Organization [facility] Address [address] [place] [address] Phone Unavailable Care Team Providers Care Strategies Analyst Name Role Phone NONSTAFF PCP Unavailable ARYAN, ЕКАТЕРИНА, PROCEDURES TECH Attphys Unavailable ANTOINETTE, FLOYD, PROCEDURES TECH Attphys Unavailable DUCHAMP, A NINOSKA Attphys Unavailable Payers Payer Name Policy Type Policy Number Effective Date Expiration Date Ezekiel Guo Pos [id number] 2017 00:00:00 2017 00:00 :00 [facility] Problems Condition Name Condition Details Condition Category Status Onset Date Resolution Date Last Treatment Date Treating Clinician Comments Source History of anxiety disorder History of anxiety disorder Problem Resolved [facility] History of Migraine History of Migraine Problem Resolved [facility] Feeling poorly Feeling poorly Problem Active [facility] Anxiety Anxiety Problem Active [facility] Back pain Back pain Problem Active [facility] Hyperlipidemia Hyperlipidemia Problem Active [facility] BMI 27.0-27.9,adult BMI 27.0-27.9,adult Problem Active [facility] Flu vaccine need Flu vaccine need Problem Active [facility] Neck pain Neck pain Problem Active [facility] Sore throat Sore throat Problem Active [facility] Screening for endocrine, metabolic and immunity disord er Screening for endocrine, metabolic and immunity disorder Problem Active [facility] Screening for lipid disorders Screening for lipid disorders Problem Active [facility] Breast cancer screening Breast cancer screening Problem Active [facility] Acute allergic rhinitis due to pollen Acute allergic rhiniti s due to pollen Problem Active [facility] Generalized joint pain Generalized joint pain Problem Active [facility] Common migraine without aura Common migraine without aura Problem Active [facility] COVID-19 virus infection COVID-19 virus infection Problem Active [facility] Atypical chest pain Atypical chest pain Problem Active [facility] Allergies, Adverse Reactions, Alerts This patient has no known allergies or adverse reactions. Family History Family Member Diagnosis Comments Start Date Stop Date Source Mother Family history of essential hypertension [facility] Mother Family history of hyperlipidemia [facility] Mother Family history of anxiety disorder [facility] Father Family history of essential hypertension [facility] Father Family history of hyperlipidemia [facility] Father Family history of anxiety disorder [facility] Unknown Family Member Family history of malignant neoplasm o f cervix Family History [facility] Social History Smoking Status Start Date Stop Date Source Never smoked tobacco (finding) [facility] Medications Ordered Medication Name Filled Medication Name Start Date Stop Da te Current Medication? Ordering Clinician Indication Dosage Frequency Signature (SIG) Comments Components Source LORazepam 0.5 MG Oral Tablet LORazepam 0.5 MG Oral Tablet 00:00:00 Yes ЕКАТЕРИНА BAZEA PROCEDURES TECH Take 1 tab by mouth twice daily as needed for anxiety [facility] SUMAtriptan Succinate 100 MG Oral Tablet SUMAtriptan S uccinate 100 MG Oral Tablet 2018-08-30 00:00:00 Yes FLOYD CURRY PROCEDURES TECH TAKE 1 TABLET FOR MIGRAINE RELIEF. MAY REPEAT 2 HOURS LATER. MAXIMUM 200MG/DAY. [facility] Etodolac 500 Mg Tablet Etodolac 500 Mg Tablet 2018-08-04 00:00:00 Yes Ninoska Helm Md 1 Twice A Day for Pain And Inflammation [facility] Prednisone 20 Mg Tab Prednisone 20 Mg Tab 2018-08-04 00:00:00 Yes Ninoska eHlm Md 50 Daily for Back Pain And Inflammation [facility] Tramadol Hcl (Ultram) 50 Mg Tablet Tramadol Hcl (Ultram) 50 Mg Tablet 2018-08-04 00:00:00 Yes Ninoska Helm Md 50 Every 6 Hours as needed for Back Pain [facility] Ondansetron (Zofran Odt) 4 Mg Tab.rapdis Ondansetron ( Zofran Odt) 4 Mg Tab.rapdis 2017-10-03 00:00:00 Yes Ninoska Helm Md 4 Every 6 Hours as needed for Nausea And Vomiting [facility] Albuterol Sulfate HFA AERS Albuterol Sulfate HFA AERS Yes [facility] Immunizations Ordered Immunization Name Filled Immunization Name Date Status Comments Source Fluzone Quadrivalent 0.5 ML Intramuscular Suspension Prefill ed Syringe 2019-03-13 15:56:00 Completed [facility] Tdap (Boostrix) 2018-09-22 10:17:00 Completed [facility] Vital Signs Vital Name Observation Time Observation Value Comments Source Systolic blood pressure 2019-09-20 09:28:00 124 mm[Hg] Loca tion: LUE; Position: Sitting [facility] Diastolic blood pressure 2019-09-20 09:28:00 82 mm[Hg] Loc ation: LUE; Position: Sitting [facility] Body height 2019-09-20 09:28:00 67 [in_us] [facility] Weight 2019-09-20 09:28:00 164 [lb_av] [facility] Body mass index (BMI) [Ratio] 2019-09-20 09:28:00 25.69 kg/m2 [facility] Body temperature 2019-09-20 09:28:00 98.4 [degF] Method: Temporal [facility] Heart Rate 2019-09-20 09:28:00 77 /min [facility] Respiratory rate 2019-09-20 09:28:00 16 /min [facility] Systolic blood pressure 2019-09-04 07:31:00 119 mm[Hg] Loca tion: LUE; Position: Sitting [facility] Diastolic blood pressure 2019-09-04 07:31:00 80 mm[Hg] Loc ation: LUE; Position: Sitting [facility] Body height 2019-09-04 07:31:00 67 [in_us] [facility] Weight 2019-09-04 07:31:00 157 [lb_av] [facility] Body mass index (BMI) [Ratio] 2019-09-04 07:31:00 24.59 kg/m2 [facility] Heart Rate 2019-09-04 07:31:00 74 /min Location: L Brachial Artery; [facility] Systolic blood pressure 2019-05-02 16:10:00 138 mm[Hg] Loca tion: LUE; Position: Sitting [facility] Diastolic blood pressure 2019-05-02 16:10:00 88 mm[Hg] Loc ation: NEALE; Position: Sitting [facility] Body height 2019-05-02 16:10:00 67 [in_us] [facility] Weight 2019-05-02 16:10:00 168.5 [lb_av] [facility] Body mass index (BMI) [Ratio] 2019-05-02 16:10:00 26.39 kg/m2 [facility] Body temperature 2019-05-02 16:10:00 98.3 [degF] Method: Oral [facility] Heart Rate 2019-05-02 16:10:00 72 /min Location: L Brachial Artery; [facility] O2 SAT 2019-05-02 16:10:00 98 % Source: RA [facility] BP Systolic 2019-03-13 15:10:00 121 mm[Hg] Location: KATIE; Positi on: Sitting [facility] BP Diastolic 2019-03-13 15:10:00 80 mm[Hg] Location: KATIE; Positi on: Sitting [facility] Height 2019-03-13 15:10:00 67 [in_us] [facility] Weight 2019-03-13 15:10:00 174 [lb_av] [facility] Body Mass Index Calculated 2019-03-13 15:10:00 27.25 kg/m2 [facility] Temperature 2019-03-13 15:10:00 98.2 [degF] Method: Temporal [facility] Heart Rate 2019-03-13 15:10:00 76 /min Quality: Normal [facility] BP Systolic 2018-09-22 09:21:00 127 mm[Hg] Location: KATIE; Positi on: Sitting [facility] BP Diastolic 2018-09-22 09:21:00 88 mm[Hg] Location: KATIE; Positi on: Sitting [facility] Height 2018-09-22 09:21:00 67 [in_us] [facility] Weight 2018-09-22 09:21:00 187.375 [lb_av] [facility] Body Mass Index Calculated 2018-09-22 09:21:00 29.35 kg/m2 [facility] Temperature 2018-09-22 09:21:00 97.5 [degF] Method: Temporal [facility] Heart Rate 2018-09-22 09:21:00 71 /min [facility] Respiration Rate 2018-09-22 09:21:00 16 /min [facility] BP Systolic 2018-08-31 10:01:00 137 mm[Hg] Location: YOHANNES Positi on: Sitting [facility] BP Diastolic 2018-08-31 10:01:00 87 mm[Hg] Location: YOHANNES Positi on: Sitting [facility] Height 2018-08-31 10:01:00 67 [in_us] [facility] Weight 2018-08-31 10:01:00 188.0625 [lb_av] [facility] Body Mass Index Calculated 2018-08-31 10:01:00 29.45 kg/m2 [facility] Temperature 2018-08-31 10:01:00 97.9 [degF] Method: Oral [facility] Heart Rate 2018-08-31 10:01:00 68 /min [facility] Respiration Rate 2018-08-31 10:01:00 16 /min [facility] Procedures Procedure Date / Time Performed Performing Clinician Sour e XRAY Chest 2 views [id number] 2019-09-20 00:00:00 [facility] Digital Mammo Screening Jono [id number] 2019-09-04 00:00:00 [facility] [Q] DANAE SCREEN, IFA, W/REFLEX TO TITER AND PATTERN/RHEUM 2019-02 00:00:00 [facility] [[facility]] CMP W/EGFR 2019-03-13 00:00:00 [facility] [] LIPID PANEL WITH REFLEX TO DIRECT LDL 2019-03-13 00:00:00 [facility] MA Digital Mammo Screening Jono [id number] 2018-10-26 00:00:00 [facility] [[facility]] TSH, 3RD GENERATION W/REFLEX TO FT4 2018-09-22 00:00:00 [facility] [[facility]] CMP W/EGFR 2018-09-22 00:00:00 [facility] [[facility]] CBC (INCLUDES DIFF/PLT) 2018-09-22 00:00:00 [facility] [[facility]] VITAMIN B12 2018-09-22 00:00:00 [facility] [[facility]] LIPID PANEL 2018-09-22 00:00:00 [facility] Marce - DIAG MAMM BILATERAL CAD DIGITAL 2018-09-22 00:00:00 [facility] History of Hysterectomy [facility] History of Tubal Ligation [facility] History of Tubal ligation reversal [facility] Plan of Care Planned Activity Planned Date Details Comments Source Future Appointment 2019-11-06 15:20:00 Nathan ORTIZ, [facility] Encounters Start Date/Time End Date/Time Encounter Type Admission Type Attendi [facility] Care Department Encounter ID Source 2019-09-20 09:00:00 2019-09-20 09:00:00 Appointment; ЕКАТЕРИНА BAEZA A PRN SAXE, KAILA, APRN [facility] [id number] [facility] 2019-09-04 07:30:00 2019-09-04 07:30:00 Appointment; ЕКАТЕРИНА BAEZA A PRN SAXE, KAILA, APRN [facility] [id number] [facility] 2019-05-02 16:15:00 2019-05-02 16:15:00 Appointment; ЕКАТЕРИНА BAEZA A PRN SAXE, KAILA, APRN [facility] [id number] [facility] 2019-03-13 15:30:00 2019-03-13 15:30:00 Appointment; ЕКАТЕРИНА BAEZA A PRN SAXE, KAILA, APRN [facility] [id number] [facility] 2018-10-31 11:00:00 2018-10-31 11:00:00 Appointment; FLOYD CURRY APRN LEDOUX, LEANNE, APRN [facility] [id number] [facility] 2018-09-22 09:00:00 2018-09-22 09:00:00 Appointment; ЕКАТЕРИНА BAEZA A PRN SAXE, KAILA, APRN [facility] [id number] [facility] 2018-09-02 17:27:00 2018-09-02 17:27:00 Emergency E [id number] 2018-08-30 14:30:00 2018-08-30 14:30:00 Appointment; FLOYD CURRY APRN LEDOUX, LEANNE, APRN [facility] [id number] [facility] 2018-08-04 15:02:00 2018-08-04 17:21:00 Departed Emergency Room 1 NINOSKA HELM [facility] [id number] [facility] 2017-10-22 11:52:00 2017-10-22 14:20:00 Departed Emergency Room [facility] [id number] [facility] 2017-10-03 01:07:00 2017-10-03 02:44:00 Departed Emergency Room [facility] [id number] [facility] 2017-09-16 16:35:00 2017-09-16 17:15:00 Departed Emergency Room [facility] [id number] [facility] Patients [facility] Results Test Description Test Time Test Comments Results Result Comments Source [O] Streptococcus Test Rapid (In Office) 2019-05-02 16:16:53 Test Item Group A Strep Screen; Normal (test code = 75435-0) Negative N [facility][Q] LIPID PANEL WITH REFLEX TO DIRECT LDL 2019-03-22 08:24:00* Test Item Value Reference Range Interpretation Comments CHOLESTEROL, TOTAL; Above High Threshold (test code = 2093-3) 239 m g/dl <200 HDL CHOLESTEROL; Below Low Threshold (test code = 2085-9) 49 mg/dl > OR = 50 TRIGLYCERIDES; Normal (test code = 2571-8) 104 mg/dl <150 N LDL-CHOLESTEROL; Above High Threshold (test code = 91679-7) 167 {MG/DL PERNELL} Reference range: <100 Desirable range <1 00 mg/dL for primary prevention; <70 mg/dL for patients with CHD or diabetic patients with > or = 2 CHD risk factors. LDL-C is now calculated using the Cheryl calculation, which is a validated novel method providing better accuracy than the Friedewald equation in the estimation of LDL-C. Dmitriy BEVERLY et al. ANAYELI. 2013;310(19): 4095-1270 (http ://education.[employer]ets[employer]EUROBOX/faq/KIW161) CHOL/HDLC RATIO (test code = CHOL/HDLC RATIO) 4.9 {CALC} <5.0 N NON HDL CHOLESTEROL (test code = NON HDL CHOLESTEROL) 190 {MG/DL C AL} <130 For patients with diabetes plus 1 major ASCVD risk factor, treating to a non-HDL-C goal of <100 mg/dL (LDL-C of <70 mg/dL) is considered a therapeutic option. [facility][Q] DANAE SCREEN, IFA, W/REFLEX TO TITER AND PATTERN/[id number] 08:24:00* Test Item Value Reference Range Interpretation Comments DANAE SCREEN, IFA (test code = DANAE SCREEN, IFA) NEGATIVE NEGATIVE DANAE IFA is a first line screen [...] inflammatory myopathies. AC-0: NegativeInternational Consensus on DANAE Patternshttps://doi.org/10.1515/uhug-6561-9341 For additional information, please refer tohttp://education.[employer]/faq/WHA020(This link is being provided for information/educationalpurposes only.) RHEUMATOID FACTOR (test code = RHEUMATOID FACTOR) <14 <14 CYCLIC CITRULLINATED PEPTIDE (CCP) AB (I GG) (test code = CYCLIC CITRULLINATED PEPTIDE (CCP) AB (IGG)) <16 Referenc e Range: NEGATIVE: <20 WEAK POSITIVE: 20-39 MODERATE POSITIVE: 40-59 STRONG POSITIVE >59 INTERPRETATION (test code = INTERPRETATION) SEE NOTE There is no serologic evidence for rheumatoid arthritis. TheRF and CCP tests each have a sensitivity for establishedrheumatoid arthritis of approximately 65-70%. Wcsuroqq26-1-4r, a serum marker that is positive in 21% of RFnegative/CCP negative early rheumatoid arthritis and in 67%of RF negative/CCP negative established rheumatoidarthritis, if clinically indicated. 14.3.3 ETA PROTEIN (test code = 14.3.3 ETA PROTEIN) <0.2 <0 .2 The 14-3-3eta protein is a marker of synovial inflammationthat is released into synovial fluid and peripheral blood inrheumatoid arthritis (RA) and erosive psoriatic arthritis.One in five RF and CCP seronegative early stage RA patientsis found to be positive for 14-3-3eta protein. Patients withactive joint RA disease have higher values of 96-8-6mnrickxxlt than those with inactive RA or psoriasis witho utarthritis. 14-3-3eta protein has a 93% specificity inpatients with RA. Values > or = 0.2 ng/mL are elevated andindicative of RA disease or erosive psoriatic arthritis.Values >0.50 ng/mL are associated with more aggressive RAdisease and poorer outcomes. Unlike RF and CCP, 64-5-9ydijinfslv is a therapeutically modifiable marker to monitorresponse to therapy. A decrease in 14-3-3eta protein inresponse to DMARDs (disease-modifying antirheumatic drugs)and anti-TNF (tumor necrosis factor) drugs indicates betterclinical outcomes; an increase is associated with worseoutcomes despite apparent clinical remission. For further information please visit:[email or web address].action?dc=TS- RmArthPnl This test was developed and its analytical performancecharacteristics have been determined by [facility]. It has not beencleared or approved by FDA. This assay has been validatedpursuant to the CLIA regulations and is used for clinicalpurposes. [facility]] CMP W/[id number] 08:24:00* Test Item Value Reference Range Interpretation Comments GLUCOSE; Normal (test code = 1547-9) 85 mg/dl 65-99 N Fasting reference interval UREA NITROGEN (BUN) (test code = UREA NITROGEN (BUN)) 12 mg/dl 7-25 N CREATININE (test code = CREATININE) 0.67 mg/dl 0.50-1.10 N eGFR NON- (test code = eGFR NON-DANIELA N STATELESS) 104 {ML/MIN/1.7} > OR = 60 N eGFR (test code = eGFR ) 12 0 {ML/MIN/1.7} > OR = 60 N BUN/CREATININE RATIO (test code = BUN/CREATININE RATIO) NOT APPLICA BLE 6-22 SODIUM (test code = SODIUM) 141 mmol/L 135-146 N POTASSIUM (test code = POTASSIUM) 4.0 mmol/L 3.5-5.3 N CHLORIDE (test code = CHLORIDE) 107 mmol/L 98-110 N CARBON DIOXIDE (test code = CARBON DIOXIDE) 26 mmol/L 20-32 N CALCIUM (test code = CALCIUM) 9.0 mg/dl 8.6-10.2 N PROTEIN, TOTAL (test code = PROTEIN, TOTAL) 6.4 g/dl 6.1-8.1 N ALBUMIN (test code = ALBUMIN) 4.0 g/dl 3.6-5.1 N GLOBULIN (test code = GLOBULIN) 2.4 {G/DL CALC} 1.9-3.7 N ALBUMIN/GLOBULIN RATIO (test code = ALBUMIN/GLOBULIN RATIO) 1.7 {CALC} 1.0-2.5 N BILIRUBIN, TOTAL; Normal (test code = 27508-1) 0.8 mg/dl 0.2-1.2 N ALKALINE PHSPHATASE (test code = ALKALINE PHSPHATASE) 57 u/l 31-125 N AST; Normal (test code = 1916-6) 14 u/l 10-35 N ALT; Normal (test code = 1742-6) 11 u/l 6-29 N [facility] MAMM BILATERAL CAD [id number] 09:44:20 - SCR MAMM BILATERAL CAD DIGITALBILATERAL DIGITAL SCREENING MAMMOGRAM WITH CAD: 10/26/2018CLINICAL: Asymptomatic. Current mammographic images were evaluated by either a [employer] M-Vu or a [employer] ImageChecker CAD (computer aided detection sy stem). Comparison is made to exams dated 04/05/2015 mammogram and 03/05/2015 [facility] [place] cathie [place]. The tissue of both breasts is heterogeneously dense. This may lower the sensitivity of mammography. There is a stable benign mass in both breasts. There also is a biopsy clip in the right breast. No nathalie picious mass, architectural distortion, malignant type calcification, or lymph n ode abnormality detected. Breast architecture is stable compared to prior exams .IMPRESSION: BENIGNThere is no mammographic evidence of malignancy. Resume annua l screening mammography in one year. Marian gutierrez/:10/28/2018 09:44 :20 Fitness Trainer: Deisy MENDEZ, [facility]-FWletter sent : BIRADS 1-2 Normal Mammogram BI-RADS: 2 BenignRose - SCR MAMM BILATERAL CAD [id number] 16:31:00* Test Item Value Reference Range Interpretation Comments SCR MAMM BILATERAL CAD DIGITAL (test code = SCR MAMM B ILATERAL CAD DIGITAL) - SCR MAMM BILATERAL CAD DIGITALBILATERAL DIGITAL SCREENING MAMMOGRAM WITH CAD: 10/26/2018CLINICAL: Asymptomatic. Current mammographic images were evaluated by either a [employer] M-Vu or a [employer] CAD (computer aided detection system). Comparison is made to exams dated 04/05/2015 mammogram and 03/05/2015 mammogram - Nel [place]. The tissue of both breasts is heterogeneously dense. This may lower the sensitivity of mammography. There is a stable benign mass in both breasts. There also is a biopsy clip in the right breast. No suspicious mass, architectural distortion, malignant type calcification, or lymph node abnormality detected. Breast architecture is stable compared to prior exams.IMPRESSION: BENIGNThere is no mammographic evidence of malignancy. Resume annual screening mammography in one year. Marian Nieves D.O. al/:10/28/2018 09:44:20 Fitness Trainer: Deisy MENDEZ, [facility]-FWletter sent: BIRADS 1-2 Normal Mammogram BI-RADS: 2 Benignhtt [email or web address] [facility]] LIPID [id number] 10:47:00* Test Item Value Reference Range Interpretation Comments CHOLESTEROL, TOTAL; Above High Threshold (test code = 2093-3) 264 m g/dl <200 HDL CHOLESTEROL; Normal (test code = 2085-9) 56 mg/dl >50 N TRIGLYCERIDES; Normal (test code = 2571-8) 105 mg/dl <150 N LDL-CHOLESTEROL; Above High Threshold (test code = 83456-6) 185 {MG/DL PERNELL} Reference range: <100 Desirable range <1 00 mg/dL for primary prevention; <70 mg/dL for patients with CHD or diabetic patients with > or = 2 CHD risk factors. LDL-C is now calculated using the Cheryl calculation, which is a validated novel method providing better accuracy than the Friedewald equation in the estimation of LDL-C. Dmitriy SS et al. ANAYELI. 2013;310(19): 3028-7317 (http ://education.[employer]/faq/ISG296) CHOL/HDLC RATIO (test code = CHOL/HDLC RATIO) 4.7 {CALC} <5.0 N NON HDL CHOLESTEROL (test code = NON HDL CHOLESTEROL) 208 {MG/DL C AL} <130 For patients with diabetes plus 1 major ASCVD risk factor, treating to a non-HDL-C goal of <100 mg/dL (LDL-C of <70 mg/dL) is considered a therapeutic option. [facility]] CMP [id number] 10:47:00* Test Item Value Reference Range Interpretation Comments GLUCOSE; Normal (test code = 1547-9) 87 mg/dl 65-99 N Fasting reference interval UREA NITROGEN (BUN) (test code = UREA NITROGEN (BUN)) 11 mg/dl 7-25 N CREATININE (test code = CREATININE) 0.73 mg/dl 0.50-1.10 N eGFR NON- (test code = eGFR NON-DANIELA N STATELESS) 97 {ML/MIN/1.7} > OR = 60 N eGFR (test code = eGFR ) 11 3 {ML/MIN/1.7} > OR = 60 N BUN/CREATININE RATIO (test code = BUN/CREATININE RATIO) NOT APPLICA BLE 6-22 SODIUM (test code = SODIUM) 141 mmol/L 135-146 N POTASSIUM (test code = POTASSIUM) 3.8 mmol/L 3.5-5.3 N CHLORIDE (test code = CHLORIDE) 107 mmol/L 98-110 N CARBON DIOXIDE (test code = CARBON DIOXIDE) 25 mmol/L 20-32 N CALCIUM (test code = CALCIUM) 9.3 mg/dl 8.6-10.2 N PROTEIN, TOTAL (test code = PROTEIN, TOTAL) 7.1 g/dl 6.1-8.1 N ALBUMIN (test code = ALBUMIN) 4.3 g/dl 3.6-5.1 N GLOBULIN (test code = GLOBULIN) 2.8 {G/DL CALC} 1.9-3.7 N ALBUMIN/GLOBULIN RATIO (test code = ALBUMIN/GLOBULIN RATIO) 1.5 {CALC} 1.0-2.5 N BILIRUBIN, TOTAL; Normal (test code = 51412-5) 0.9 mg/dl 0.2-1.2 N ALKALINE PHSPHATASE (test code = ALKALINE PHSPHATASE) 70 u/l 33-115 N AST; Normal (test code = 1916-6) 13 u/l 10-35 N ALT; Normal (test code = 1742-6) 12 u/l 6-29 N [facility]] CBC (INCLUDES DIFF/PLT)2018-09-22 10:47:00* Test Item Value Reference Range Interpretation Comments WHITE BLOOD CELL COUNT (test code = WHITE BLOOD CELL COUNT) 6.4 {Thousand/u} 3.8-10.8 N RED BLOOD CELL COUNT (test code = RED BLOOD CELL COUNT) 4.59 {Million/uL} 3.80-5.10 N HEMAGLOBIN; Normal (test code = 83547-3) 13.6 g/dl 11.7-15.5 N HEMATOCRIT; Normal (test code = 4544-3) 40.7 % 35.0-45.0 N MCV; Normal (test code = 787-2) 88.7 fL 80.0-100.0 N MCHC; Normal (test code = 32678-7) 33.4 g/dl 32.0-36.0 N RDW; Normal (test code = 788-0) 12.8 % 11.0-15.0 N PLATELET COUNT; Normal (test code = 777-3) 208 {Thousand/u} 140-400 N MPV; Normal (test code = 10029-0) 11.7 fL 7.5-12.5 N ABSOLUTE NEUTROPHILS (test code = ABSOLUTE NEUTROPHILS) 4755 {cells/uL} 1046-6237 N ABSOLUTE LYMPHOCYTES (test code = ABSOLUTE LYMPHOCYTES) 1235 {cells/uL} 850-3900 N ABSOLUTE MONOCYTES (test code = ABSOLUTE MONOCYTES) 320 {cells/uL} 200-950 N ABSOLUTE EOSINOPHILS (test code = ABSOLUTE EOSINOPHILS) 58 {cells/u L} 15-500 N ABSOLUTE BASOPHILS (test code = ABSOLUTE BASOPHILS) 32 {cells/uL} 0 -200 N NEUTROPHILS (test code = NEUTROPHILS) 74.3 % N LYMPHOCYTES (test code = LYMPHOCYTES) 19.3 % N MONOCYTES; Normal (test code = 59878-1) 5.0 % N EOSINOPHILS; Normal (test code = 96737-7) 0.9 % N BASOPHILS; Normal (test code = 34335-2) 0.5 % N [facility]] VITAMIN [id number] 10:47:00* Test Item Value Reference Range Interpretation Comments VITAMIN B12 (test code = VITAMIN B12) 454 pg/ml 200-1100 N [facility]] TSH, 3RD GENERATION W/REFLEX TO FT4 2018-09-22 10:47:00* Test Item Value Reference Range Interpretation Comments TSH, 3RD GENERATION W/REFLEX TO FT4 (pawel t code = TSH, 3RD GENERATION W/REFLEX TO FT4) 0.80 {MIU/L} N Reference Range > or = 20 Years 0.40-4.50 Ranges First trimester 0.26-2.66 Second trimester 0.55-2.73 Third trimester 0.43-2.91 [facility] 4 OR MORE VIEWS - [id number] 16:26:00 [place] [address] Patient Name: CONSTANCE RICHARDS MR #: [id number] : 1970 Age/Sex: 48/F 9 Req #: [id number] Adm Physician: Ordered by: NINOSKA HELM MD Report #: [id number] Location: [facility] Room/Bed: Procedure: 062 0-0003 HOPD/L SPINE 4 OR MORE VIEWS - HOPD Exam Date: 08/04/18 Exam Time: 1621 REPORT S TATUS: Signed Exam: Lumbar spine complete History: Low back pain Comparison: None. Findings: There are 5 nonrib-bearing lumbar-type verte bral bodies. No acute displaced fracture or subluxation. Intervertebral disc s paces are well-maintained. Facet joints are intact. No pars interarticularis d efects are identified on the oblique radiographs. Sacroiliac joints are well-m aintained. Sacral foramina are intact superiorly. Impression: No acu te osseous abnormality. Signed by: Dr. Inés Nielsen M.D. on 08/04/2018 4:2 9 PM Dictated By: INÉS NIELSEN MD 28 Transcribed By: REMBERTO on 08/04/181628 COPY TO: NINOSKA HELM MD
--- OUTSIDE RECORDS SUMMARY | 2019-09-23 14:54 | XMS REPORT | Summary of Care ---
Author Author [facility] Address [address] [place] [address] Phone Unavailable Care Team Providers Care [employer] Name Role Phone ARYAN N.P., ЕКАТЕРИНА Unavailable Unavailable ANTOINETTE N.P., FLOYD Unavailable Unavailable [facility] NURSE, DUSTY L Unavailable Unavailable GERALDINE CHINCHILLA [place], MAGGIE MEDEIROS Unavailable Unavailable ARYAN [facility]IATR[facility] MENTAL HEALTH NURSE, ЕКАТЕРИНА Unavailable Unavailable Unavailable Unavailable Functional Status [...] Z13.29) Status: Active Medications Name Dates Details SUMAtriptan [...] smoker Vital Signs Date Test Result Details [id number]-[id number]:10 BP Systolic 121 mm[Hg] Status: Comments: Lo [...]
[2019-09-23] MEDS ORDERED: ASPIRIN 81 MG CHEW TAB ONE (15:13)
--- NOTE | 2019-09-23 15:27 | Diagnostic Imaging Report ---
Exam: Head CT without contrast History: Headache Comparison studies: None Technique: Axial images were obtained from the skull base to the vertex. Coronal and sagittal images reconstructed from the axial data. Dose modulation, iterative reconstruction, and/or weight based adjustment of the mA/kV was utilized to reduce the radiation dose to as low as reasonably achievable. Radiation dose: Total DLP: 969.14 mGy*cm. Estimated effective dose: DLP x 0.015 Intravenous contrast: None Findings: Scalp: No abnormalities. Bones: No fractures, blastic or lytic lesions. Brain sulci: Appropriate for age. Ventricles: Normal in size and configuration. No hydrocephalus. Extra-axial spaces: No masses, no fluid collection. Parenchyma: No abnormal densities. No masses, acute hemorrhage, acute or chronic vascular insults. Sellar/suprasellar region: No abnormalities. Craniocervical junction: Patent foramen magnum. No Chiari one malformation. Included paranasal sinuses: Clear. Middle ear cavities and mastoids: Clear. IMPRESSION: No abnormalities. Signed by: Dr. Jared Camarillo M.D. on 09/23/2019 3:23 PM
--- NOTE | 2019-09-23 15:32 | Diagnostic Imaging Report ---
EXAMINATION: CXR 2 VIEW - HOPD INDICATION: ^chest pain COMPARISON: FINDINGS: TUBES and LINES: None.None LUNGS: Lungs are well inflated. Lungs are clear. There is no evidence of pneumonia or pulmonary edema. PLEURA: No pleural effusion or pneumothorax. HEART AND MEDIASTINUM: The cardiomediastinal silhouette is unremarkable. BONES AND SOFT TISSUES: No acute osseous lesion. Soft tissues are unremarkable. UPPER ABDOMEN: No free air under the diaphragm. IMPRESSION: No acute thoracic abnormality. Signed by: Dr. Carl Davis M.D. on 09/23/2019 3:29 PM
[2019-09-23] MEDS ORDERED: TESSALON PERLE100 MG PO (16:23)
[2019-09-23 16:45] VITALS: BP 108/73
== END 2019-09-23 16:40 | disposition home or self-care (01) ==
LOC: FSED 14:29
DX: R07.89 Other chest pain (principal); R05 Cough; F41.9 Anxiety disorder, unspecified
CPT/HCPCS: 70450; 71046; 80048; 80076; 82553; 84484; 85025; 85379; 93005; 99284

== ENCOUNTER 2021-09-23 10:07 | Emergency (ER) | payer BC ==
[~2021-09-23] VITALS: Ht 170.2 cm; Wt 74.4 kg
[~2021-09-23 10:07] MED LIST changes: +TESSALON PERLE100 MG PO
[2021-09-23] MEDS ORDERED: TOPAMAX25 MG PO (10:22)
[2021-09-23] MEDS ORDERED: ATIVAN0.5 MG PO (10:22)
[2021-09-23] MEDS ORDERED: NITROFURANTOIN100 MG PO (10:22)
[2021-09-23] MEDS ORDERED: SODIUM CHLORIDE 0.9% 1000ML 1,000 ML IV STA (10:30)
[2021-09-23] MEDS ORDERED: ONDANSETRON HCL INJ 2MG/ML 2ML 2 MG/ML VIAL IV STA (10:30)
[2021-09-23] MEDS ORDERED: SUMATRIPTAN SUCCINATE 6 MG/0.5 ML VIAL SC ONE (10:30)
[2021-09-23] MEDS ORDERED: ONDANSETRON HCL INJ 2MG/ML 2ML 2 MG/ML VIAL ONE (10:38)
[2021-09-23] MEDS ORDERED: SODIUM CHLORIDE 0.9% 1000ML 1,000 ML ONE (10:39)
[2021-09-23] MEDS ORDERED: SUMATRIPTAN SUCCINATE 6 MG/0.5 ML VIAL ONE (10:46)
[2021-09-23] MEDS ORDERED: ONDANSETRON ODT4 MG PO (11:16)
== END 2021-09-23 11:23 | disposition home or self-care (01) ==
LOC: FSED 10:12
DX: G43.909 Migraine, unspecified, not intractable, without status migrainosus (principal)
CPT/HCPCS: 70450; 96372; 96374; 99283; J2405; J3030; J7030

== ENCOUNTER 2022-06-25 19:30 | Emergency (ER) | payer BC ==
[~2022-06-25] VITALS: Ht 170.2 cm; Wt 74.4 kg
[~2022-06-25 19:30] MED LIST changes: +ATIVAN0.5 MG PO; +NITROFURANTOIN100 MG PO; +ONDANSETRON ODT4 MG PO; +TOPAMAX25 MG PO
[2022-06-25 21:00] VITALS: O2SAT 97
[2022-06-25] MEDS ORDERED: BENZONATATE200 MG PO (21:06)
== END 2022-06-25 21:15 | disposition home or self-care (01) ==
LOC: FSED 19:32
DX: R05.9 Cough, unspecified (principal); R07.89 Other chest pain; F41.9 Anxiety disorder, unspecified
CPT/HCPCS: 71046; 80053; 82553; 84484; 85025; 93005; 99284

== ENCOUNTER 2023-09-14 21:39 | Emergency (ER) | payer BC ==
[~2023-09-14] VITALS: Ht 170.2 cm; Wt 83.0 kg
[~2023-09-14 21:39] MED LIST changes: +BENZONATATE200 MG PO
[2023-09-14 22:28] VITALS: PULSE 86; RESP 19; TEMP 98; O2SAT 99
[2023-09-14] MEDS: ACETAMINOPHEN 325 MG TAB PO STA (22:41)
== END 2023-09-14 22:42 | disposition home or self-care (01) ==
LOC: FSED 21:44
DX: I10 Essential (primary) hypertension (principal); R51.9 Headache, unspecified; E78.5 Hyperlipidemia, unspecified; F41.9 Anxiety disorder, unspecified; Z79.899 Other long term (current) drug therapy
CPT/HCPCS: 99282

== ENCOUNTER 2024-08-04 15:56 | Emergency (ER) | payer BC ==
[~2024-08-04] VITALS: Ht 170.2 cm; Wt 84.9 kg
[2024-08-04] MEDS ORDERED: ATIVAN1 MG PO (16:26)
[2024-08-04] MEDS ORDERED: NEURONTIN100 MG PO (16:26)
[2024-08-04] MEDS ORDERED: ROSUVASTATIN CA20 MG (16:26)
[2024-08-04] MEDS ORDERED: LOSARTAN POTASS25 MG PO (16:26)
[2024-08-04] MEDS: MAGNESIUM/ALUMINUM/SIMETHICONE 30 ML UDC PO ONE (16:49)
[2024-08-04] MEDS: ONDANSETRON HCL INJ 2MG/ML 2ML 2 MG/ML VIAL IV STA (16:49)
[2024-08-04] MEDS: BELLADONNA ALK/PHENOBARBITAL 5 ML UDC PO ONE (16:49)
[2024-08-04] MEDS: LORAZEPAM INJ 2 MG/ML VIAL IV ONE (16:50)
[2024-08-04] MEDS: LIDOCAINE VISC 2% SOLN 15 ML UDC PO ONE (16:50)
[2024-08-04] MEDS: SODIUM CHLORIDE 0.9% 1000ML 1,000 ML IV ONE (17:15)
[2024-08-04 18:00] VITALS: PULSE 72; RESP 16; TEMP 98.6; O2SAT 99
== END 2024-08-04 18:00 | disposition home or self-care (01) ==
LOC: FSED 16:01
DX: R42 Dizziness and giddiness (principal); R07.89 Other chest pain; F41.9 Anxiety disorder, unspecified; R11.2 Nausea with vomiting, unspecified; I10 Essential (primary) hypertension; E78.5 Hyperlipidemia, unspecified; R53.1 Weakness; R94.31 Abnormal electrocardiogram [ECG] [EKG]
CPT/HCPCS: 71046; 80048; 80076; 81003; 84484; 85025; 85379; 93005; 96374; 96375; 99284; J2060; J2405; J7030

== ENCOUNTER 2024-09-23 18:34 | Emergency (ER) | payer BC ==
[~2024-09-23] VITALS: Ht 170.2 cm; Wt 83.9 kg
[~2024-09-23 18:34] MED LIST changes: +ATIVAN1 MG PO; +LOSARTAN POTASS25 MG PO; +NEURONTIN100 MG PO; +ROSUVASTATIN CA20 MG
[2024-09-23 18:51] VITALS: PULSE 74; RESP 16; TEMP 97.8
[2024-09-23] MEDS: ONDANSETRON HCL 4 MG ORAL DISINTEGRATING TAB PO ONE (19:58)
[2024-09-23] MEDS: CLONIDINE HCL 0.1 MG TAB PO ONE (19:59)
[2024-09-23] MEDS: FAMOTIDINE 20 MG TAB PO ONE (21:12)
[2024-09-23] MEDS: KETOROLAC TROMETHAMINE 60 MG/2 ML VIAL IM ONE (21:13)
[2024-09-23 22:02] VITALS: BP 146/91; PULSE 66; RESP 18; TEMP 98.2; O2SAT 98
== END 2024-09-23 22:02 | disposition home or self-care (01) ==
LOC: FSED 18:54
DX: G43.909 Migraine, unspecified, not intractable, without status migrainosus (principal); I10 Essential (primary) hypertension; R11.2 Nausea with vomiting, unspecified; E78.5 Hyperlipidemia, unspecified; F41.9 Anxiety disorder, unspecified
CPT/HCPCS: 70450; 96372; 99283; J1885; Q0162